=== PATIENT | male | born 1995 | race African-American/Black ===

== ENCOUNTER 2017-08-19 17:37 | Emergency (ER) | payer OTHER ==
[~2017-08-19] VITALS: Ht 188 cm; Wt 136.9 kg
[2017-08-19 17:41] VITALS: BP 149/89
[2017-08-19] MEDS ORDERED: LIDOCAINE 1%, 20ML ONE (18:55)
[2017-08-19] MEDS ORDERED: DIPH,PERTUSS(ACELL),TET VAC/PF 0.5 ML IM-VACC ONE ×2 (19:00→19:13)
[2017-08-19] MEDS ORDERED: LIDOCAINE 1%, 20ML SQ ONE (19:00)
[2017-08-19] MEDS ORDERED: BACITRACIN ZINC OINT 500U/GM, 0.9 GM ONE (19:13)
== END 2017-08-19 19:31 | disposition home or self-care (01) ==
LOC: ED 19:00
DX: S61.221A Laceration with foreign body of left index finger without damage to nail, initial encounter (principal); W26.0XXA Contact with knife, initial encounter; Y93.89 Activity, other specified; Y99.8 Other external cause status; Y92.090 Kitchen in other non-institutional residence as the place of occurrence of the external cause
CPT/HCPCS: 12041; 90471; 90715

== ENCOUNTER 2019-12-07 10:05 | Emergency (ER) | payer OTHER ==
[~2019-12-07] VITALS: Ht 188 cm; Wt 162.2 kg
[2019-12-07 10:09] VITALS: BP 156/91
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
[2019-12-07] MEDS ORDERED: KETOROLAC 30 MG/1 ML IM ONE (10:30)
[2019-12-07] MEDS ORDERED: METHOCARBAMOL 750 MG TABLET PO ONE (10:30)
--- NOTE | 2019-12-07 12:01 | NUR ---
Patient given discharge instructions and they have confirmed that they understand the instructions. Patient ambulatory with steady gait.
== END 2019-12-07 12:02 | disposition home or self-care (01) ==
LOC: ED 11:27
DX: S16.1XXA Strain of muscle, fascia and tendon at neck level, initial encounter (principal); S43.422A Sprain of left rotator cuff capsule, initial encounter; V49.09XA Driver injured in collision with other motor vehicles in nontraffic accident, initial encounter; Y93.89 Activity, other specified; Y92.410 Unspecified street and highway as the place of occurrence of the external cause; Y99.8 Other external cause status
CPT/HCPCS: 72125; 99284